=== PATIENT | male | born 1985 | race Caucasian/White ===

== ENCOUNTER 2021-08-17 09:50 | Emergency (ER) | payer BC, OTHER ==
[2021-08-17 09:56] VITALS: BP 143/82; PULSE 81; TEMP 98.2; BMI 25.8
[2021-08-17] MEDS ORDERED: KETOROLAC TROMETHAMINE 30 MG/1 ML VIAL IM ONE (10:32)
[2021-08-17] MEDS ORDERED: LIDOCAINE 5% TOPICAL PATCH TP ONE (10:33)
[2021-08-17] MEDS ORDERED: KETOROLAC TROMETHAMINE 30 MG/1 ML VIAL ONE (11:19)
[2021-08-17] MEDS ORDERED: LIDOCAINE 5% TOPICAL PATCH ONE (11:19)
[2021-08-17] MEDS ORDERED: LIDOCAINE PATCH REMOVAL MC SCH (22:00)
== END 2021-08-17 11:33 | disposition home or self-care (01) ==
LOC: JER 09:50
PROC: 3E0233Z Introduction of Anti-inflammatory into Muscle, Percutaneous Approach (ICD-10-PCS; principal; 2021-08-17)
DX: M54.41 Lumbago with sciatica, right side (principal)
CPT/HCPCS: 99284-25